=== PATIENT | male | born 1995 | race Caucasian/White ===

== ENCOUNTER 2024-05-16 09:07 | Emergency (ER) | payer OTHER ==
[~2024-05-16] VITALS: Ht 190.5 cm; Wt 130.0 kg
[~2024-05-16 09:07] MED LIST: CRESTOR 10MG10 MG PO; IMITREX50 M1 PO; PRILOSEC OTC20 MG PO; PROPRANOLOL HCL80 M4 PO
[2024-05-16] MEDS ORDERED: Ketorolac 30 MG/ML VIAL IM ONE (09:45)
[2024-05-16] MEDS ORDERED: Orphenadrine 60 MG/2ML AMP IM ONE (09:45)
[2024-05-16] MEDS ORDERED: CYCLOBENZAPRINE10 M1 PO (11:29)
[2024-05-16 11:41] VITALS: BP 133/98
== END 2024-05-16 11:51 | disposition home or self-care (01) ==
LOC: ED 09:07
DX: R07.89 Other chest pain (principal)
CPT/HCPCS: J1885; J2360